=== PATIENT | male | born 1965 | race Caucasian/White ===

== ENCOUNTER 2020-08-16 03:21 | Inpatient (IN) | payer OTHER ==
[2020-08-16 04:13] LABS: BASOPHIL 0.6 % (0-2); EOSINOPHIL 7.3 % (0-5); HCT 40.8 % (42.0-52.0); HGB 14.1 g/dl (13.2-18.0); LYMPHOCYTE 23.9 % (15-48); MCH 35.1 pg (25.0-31.0); MCHC 34.6 g/dL (32.0-36.0); MCV 101.5 fL (78.0-100.0); MONOCYTE 9.3 % (0-12); NEUTROPHIL 58.4 % (41-80); NRBC 0; PLT 251 K/uL (150-400); RBC 4.02 M/uL (4.70-6.00); RDW 11.4 % (11.5-14.0); WBC 8.5 K/uL (4.0-10.5)
[2020-08-16 04:25] LABS: ALBUMIN 3.7 g/dL (3.4-5.0); BILIRUBIN - TOTAL 0.2 mg/dL (0.2-1.0); CREATININE 3.07 mg/dL (0.67-1.17); GLOBULIN (CALCULATION) 4.2 g/dL; POTASSIUM 4.7 mmol/L (3.5-5.1); TOTAL PROTEIN 7.9 g/dL (6.4-8.2)
[2020-08-16] MEDS ORDERED: TENORMIN50 MG PO (10:24)
[2020-08-16] MEDS ORDERED: DIAZEPAM5 MG PO (10:26)
[2020-08-16] MEDS ORDERED: ASPIRIN EC81 MG PO (10:28)
[2020-08-16] MEDS ORDERED: VITAMIN D325 MC4 PO (10:30)
[2020-08-16] MEDS ORDERED: IBUPROFEN800 MG PO (10:31)
[2020-08-16 12:17] LABS: URINE CREATININE 73.46 mg/dL (29.00-226.00); URINE TOTAL PROTEIN-RANDOM 36.1 mg/dL (<11.9)
[2020-08-16 12:53] LABS: BUN/CREAT RATIO (CALC) 30.8 RATIO; CREATININE 2.5 mg/dL (0.67-1.17); FOLIC ACID (SERUM) 15.4 ng/mL (8.6-58.9); MAGNESIUM 2.2 mg/dL (1.8-2.4); PHOSPHORUS 3.8 mg/dL (2.6-4.7); POTASSIUM 4.9 mmol/L (3.5-5.1); URIC ACID 12.1 mg/dL (3.5-7.2)
[2020-08-17 06:15] LABS: BASOPHIL 0.8 % (0-2); EOSINOPHIL 6.9 % (0-5); HCT 38.4 % (42.0-52.0); HGB 12.6 g/dl (13.2-18.0); LYMPHOCYTE 26.4 % (15-48); MCH 34.6 pg (25.0-31.0); MCHC 32.8 g/dL (32.0-36.0); MCV 105.5 fL (78.0-100.0); MONOCYTE 11.7 % (0-12); MPV 10.6 fL (6.0-9.5); NEUTROPHIL 53.6 % (41-80); NRBC 0; PLT 201 K/uL (150-400); RBC 3.64 M/uL (4.70-6.00); RDW 11.6 % (11.5-14.0)
[2020-08-17 06:41] LABS: CREATININE 1.87 mg/dL (0.67-1.17); POTASSIUM 5.1 mmol/L (3.5-5.1)
[2020-08-18 08:37] LABS: HCT 37.2 % (42.0-52.0); HGB 12.5 g/dl (13.2-18.0); MCH 35.2 pg (25.0-31.0); MCHC 33.6 g/dL (32.0-36.0); MCV 104.8 fL (78.0-100.0); RBC 3.55 M/uL (4.70-6.00); RDW 11.5 % (11.5-14.0); WBC 8.6 K/uL (4.0-10.5)
[2020-08-18 08:56] LABS: CREATININE 1.4 mg/dL (0.67-1.17); POTASSIUM 4.7 mmol/L (3.5-5.1)
[2020-08-18] MEDS ORDERED: LISINOPRIL20 MG PO (11:09)
[2020-08-18] MEDS ORDERED: LASIX40 MG PO (11:09)
[2020-08-18] MEDS ORDERED: INDOMETHACIN PO (11:10)
== END 2020-08-18 11:30 | disposition home or self-care (01) | DRG 682 ==
LOC: FER 03:21 → FMS 07:19
PROVIDERS: Emergency Medicine; ADMIT Internal Medicine
DX: N17.9 Acute kidney failure, unspecified (principal); G93.41 Metabolic encephalopathy; I10 Essential (primary) hypertension; Z20.822 Contact with and (suspected) exposure to COVID-19; M06.9 Rheumatoid arthritis, unspecified; R25.3 Fasciculation; M10.9 Gout, unspecified; F41.9 Anxiety disorder, unspecified; T50.1X5A Adverse effect of loop [high-ceiling] diuretics, initial encounter; T39.315A Adverse effect of propionic acid derivatives, initial encounter; T39.2X5A Adverse effect of pyrazolone derivatives, initial encounter; Z88.5 Allergy status to narcotic agent; Z98.890 Other specified postprocedural states; Z79.82 Long term (current) use of aspirin; Z79.899 Other long term (current) drug therapy
CPT/HCPCS: 36415; 70450; 70551; 76770; 80048; 80053; 82550; 82570; 82607; 82746; 83735; 84100; 84156; 84300; 84443; 84550; 85025; J7030; J7040; U0002

== ENCOUNTER 2020-09-19 14:43 | Emergency (ER) | payer OTHER ==
[~2020-09-19 14:43] MED LIST: ASPIRIN EC81 MG PO; DIAZEPAM5 MG PO; IBUPROFEN800 MG PO; INDOMETHACIN PO; LASIX40 MG PO; LISINOPRIL20 MG PO; TENORMIN50 MG PO; VITAMIN D325 MC4 PO
[2020-09-19] MEDS ORDERED: ELIQUIS5 MG PO (16:30)
== END 2020-09-19 16:52 | disposition home or self-care (01) ==
LOC: FER 14:43
DX: I82.432 Acute embolism and thrombosis of left popliteal vein (principal); I10 Essential (primary) hypertension; Z79.899 Other long term (current) drug therapy; Z88.5 Allergy status to narcotic agent
CPT/HCPCS: 99283

== ENCOUNTER 2021-11-21 13:08 | Emergency (ER) | payer OTHER ==
[~2021-11-21 13:08] MED LIST changes: +ELIQUIS5 MG PO
[2021-11-21] MEDS ORDERED: NORCO 5-325 TA1 EACH PO (16:19)
== END 2021-11-21 16:24 | disposition home or self-care (01) ==
LOC: FER 13:08
DX: S92.534A Nondisplaced fracture of distal phalanx of right lesser toe(s), initial encounter for closed fracture (principal); S91.204A Unspecified open wound of right lesser toe(s) with damage to nail, initial encounter; I10 Essential (primary) hypertension; Z88.5 Allergy status to narcotic agent; Z86.718 Personal history of other venous thrombosis and embolism; Z79.01 Long term (current) use of anticoagulants; Z79.899 Other long term (current) drug therapy; W23.0XXA Caught, crushed, jammed, or pinched between moving objects, initial encounter; Y92.89 Other specified places as the place of occurrence of the external cause; Y99.0 Civilian activity done for income or pay
CPT/HCPCS: 73630